=== PATIENT | female | born 1995 | race Caucasian/White ===

== ENCOUNTER → 2020-08-22 | Outpatient (CLI) | payer BC, MEDICAID ==
[2020-08-22 16:09] LABS: BASOPHILS % (AUTO) 0 % (0-10); EOSINOPHILS # (AUTO) 0.1 10^3/uL (0.0-0.3); EOSINOPHILS % (AUTO) 1 % (0-10); HEMATOCRIT 39 % (35-52); HEMOGLOBIN 12.9 g/dL (11.5-16.0); LYMPHOCYTES # (AUTO) 1.7 10^3/uL (1.0-4.0); LYMPHOCYTES % (AUTO) 12 % (12-44); MEAN CORPUSCULAR HEMOGLOBIN 30 pg (25-34); MEAN CORPUSCULAR HGB CONC 33 g/dL (32-36); MEAN CORPUSCULAR VOLUME 89 fL (80-99); MEAN PLATELET VOLUME 12.2 fL (9.0-12.2); MONOCYTES # (AUTO) 1.1 10^3/uL (0.0-1.0); MONOCYTES % (AUTO) 8 % (0-12); NEUTROPHILS # (AUTO) 11.2 10^3/uL (1.8-7.8); NEUTROPHILS % (AUTO) 79 % (42-75); PLATELET COUNT 219 10^3/uL (130-400); WHITE BLOOD COUNT 14.3 10^3/uL (4.3-11.0)
[2020-08-22 16:23] LABS: ALANINE AMINOTRANSFERASE 21 U/L (0-55); ALBUMIN 3.5 GM/DL (3.2-4.5); ALKALINE PHOSPHATASE 251 U/L (40-136); BILIRUBIN,TOTAL 0.2 MG/DL (0.1-1.0); BUN/CREATININE RATIO 15; CARBON DIOXIDE 21 MMOL/L (21-32); CHLORIDE 104 MMOL/L (98-107); CREATININE SERUM 0.81 MG/DL (0.60-1.30); GFR ESTIMATED > 60; GLUCOSE 88 MG/DL (70-105); POTASSIUM 4.2 MMOL/L (3.6-5.0); SODIUM 134 MMOL/L (135-145); URIC ACID 5.1 MG/DL (2.6-7.2)
[2020-08-22 16:45] LABS: BAND NEUTROPHILS 0 %; BASOPHILS % (MANUAL) 0 %; EOSINOPHILS % (MANUAL) 2 %; LYMPHOCYTES % (MANUAL) 11 %; MONOCYTES % (MANUAL) 6 %; NEUTROPHILS % (MANUAL) 81 %
[2020-08-22 16:46] LABS: RBC MORPH NORMAL
== END ==
LOC: LAB 15:40
PROVIDERS: ATTEND Family Medicine
DX: O16.3 Unspecified maternal hypertension, third trimester (principal); Z3A.00 Weeks of gestation of pregnancy not specified
CPT/HCPCS: 36415; 80053; 82570; 83615; 84156; 84550; 85007; 85027

== ENCOUNTER 2020-08-24 19:36 | Outpatient (CLI) | payer BC, MEDICAID ==
[2020-08-24] VITALS (7 sets, daily range): BP systolic 138–176; BP diastolic 78–93
[~2020-08-24] VITALS: Ht 170.2 cm; Wt 99.0 kg
[2020-08-24 19:56] LABS: BILIRUBIN,URINE NEGATIVE (NEGATIVE); CLARITY,URINE SL CLOUDY; COLOR,URINE YELLOW; GLUCOSE, URINE (UA) NEGATIVE (NEGATIVE); KETONES,URINE NEGATIVE (NEGATIVE); LEUKOCYTE ESTERASE ,URINE NEGATIVE (NEGATIVE); NITRITE,URINE NEGATIVE (NEGATIVE); PH,URINE 7.5 (5-9); PROTEIN,URINE TRACE (NEGATIVE)
[2020-08-24] MEDS ORDERED: BETAMETHASONE ACE/NA PHOS 6 MG/ML (CELESTONE SOLUSPAN) ONE ×2 (20:02→20:16)
[2020-08-24] MEDS ORDERED: CLINDAMYCIN 900 MG/50 ML IVPB 50 ML IV ONE (20:02)
[2020-08-24] MEDS ORDERED: LACTATED RINGERS 1,000 ML IV ONE (20:02)
[2020-08-24 20:08] LABS: AMORPHOUS SEDIMENT,UR RARE AMOR PHOSPHATE /LPF; BACTERIA,URINE TRACE /HPF; WBC,URINE 0-2 /HPF
[2020-08-24 20:38] LABS: BASOPHILS % (AUTO) 0 % (0-10); EOSINOPHILS # (AUTO) 0.1 10^3/uL (0.0-0.3); EOSINOPHILS % (AUTO) 1 % (0-10); HEMATOCRIT 35 % (35-52); HEMOGLOBIN 11.8 g/dL (11.5-16.0); LYMPHOCYTES # (AUTO) 1.8 10^3/uL (1.0-4.0); LYMPHOCYTES % (AUTO) 16 % (12-44); MEAN CORPUSCULAR HEMOGLOBIN 30 pg (25-34); MEAN CORPUSCULAR HGB CONC 34 g/dL (32-36); MEAN CORPUSCULAR VOLUME 88 fL (80-99); MEAN PLATELET VOLUME 12.6 fL (9.0-12.2); MONOCYTES # (AUTO) 1.4 10^3/uL (0.0-1.0); MONOCYTES % (AUTO) 12 % (0-12); NEUTROPHILS # (AUTO) 7.9 10^3/uL (1.8-7.8); NEUTROPHILS % (AUTO) 70 % (42-75); PLATELET COUNT 195 10^3/uL (130-400); WHITE BLOOD COUNT 11.2 10^3/uL (4.3-11.0)
[2020-08-24 20:46] LABS: CHLORIDE 109 MMOL/L (98-107); POTASSIUM 3.9 MMOL/L (3.6-5.0); SODIUM 138 MMOL/L (135-145)
[2020-08-24 20:47] LABS: ALBUMIN 3.1 GM/DL (3.2-4.5); CALCIUM 8.5 MG/DL (8.5-10.1)
[2020-08-24 20:49] LABS: GLUCOSE 88 MG/DL (70-105); TOTAL PROTEIN 6.1 GM/DL (6.4-8.2)
--- NOTE | 2020-08-24 20:49 | Short Stay Summary ---
History of Present Illness History of Present Illness Reason for visit/HPI 25-year-old G 1 L0 Currently at 35 weeks 2 days gestation based upon ultrasound and 34 weeks 6 days based upon last menstrual period. She had ruptured membranes with copious amount of clear fluid about 1-1/2 hours prior to presentation. Her EDC based upon LMP is September 29, 2020 and by ultrasound at 12 weeks September 26, 2020. She is currently with occasional contraction. She has had no vaginal bleeding. No current headaches. Date of Admission August 24, 2020 Date of Discharge August 24, 2020 Time Seen by Provider: 20:35 Attending Physician Yanira Garrison MD Admitting Physician Jan Ferguson - [facility] Of Consult Allergies and Home Medications Allergies Coded Allergies: Sulfa (Sulfonamide Antibiotics) (Verified Allergy, Unknown, 08/24/20) amoxicillin (Verified Allergy, Unknown, 08/24/20) clavulanic acid (Verified Allergy, Unknown, 08/24/20) Patient Home Medication List Home Medication List Reviewed: Yes Past [id number]-Brlddb-Ewwyfh Hx Patient Social History Marrital Status: Number of Children: 0 Smoking Status: Never a Smoker 2nd Hand Smoke Exposure: No Immunizations Up To Date Date of Influenza Vaccine: Mar 19, 2020 Reproductive System Expected Date of Delivery: Sep 26, 2020 Hx : 1 Hx Para: 0 Review of Systems Constitutional: see HPI Physical Exam Vital Signs Vital Signs - First Documented 08/24/20 20:26 Temp 36.7 Pulse 100 Resp 20 Pulse Ox 99 O2 Delivery Room Air Capillary Refill : Less Than 3 Seconds Height, Weight, BMI Height: '" Weight: lbs. oz. kg; 34.17 BMI Method: General Appearance: No Apparent Distress Cardiovascular: Regular Rate, Rhythm Gastrointestinal: Soft Comments Cervix dilated to 2 cm, 70% effaced, -2 station Short Stay Diagnosis Discharge Diagnosis-Short Stay Admission Diagnosis: 1. Intrauterine at 35 weeks 2 days gestation with ruptured membranes 2. Mild -induced hypertension Final Discharge Diagnosis: 1. Intrauterine at 35 weeks 2 days gestation with ruptured membranes 2. Mild -induced hypertension Conclusion Labs Laboratory Tests 08/24/20 19:44: Urine Color YELLOW, Urine Clarity SL CLOUDY, Urine pH 7.5, Urine Specific [place] 1.010L, Urine Protein TRACEH, Urine Glucose (UA) NEGATIVE, Urine Ketones NEGATIVE, Urine Nitrite NEGATIVE, Urine Bilirubin NEGATIVE, Urine Urobilinogen 0.2, Urine Leukocyte Esterase NEGATIVE, Urine RBC (Auto) 1+H, Urine RBC 5-10H, Urine WBC 0-2, Urine Squamous Epithelial Cells 5-10, Urine Crystals PRESENTH, U rine Amorphous Sediment RARE JESS PHOSPHATEH, Urine Bacteria TRACE, Urine Casts NONE, Urine Mucus NEGATIVE, Urine Culture Indicated NO 08/24/20 20:10: White Blood Count 11.2H, Red Blood Count 4.00, Hemoglobin 11.8, Hematocrit 35, Mean Corpuscular Volume 88, Mean Corpuscular Hemoglobin 30, Mean Corpuscular Hemoglobin Concent 34, Red Cell Distribution Width 12.1, Platelet Count 195, Mean Platelet Volume 12.6H, Immature Granulocyte % (Auto) 0, Neutrophils (%) (Auto) 70, Lymphocytes (%) (Auto) 16, Monocytes (%) (Auto) 12, Eosinophils (%) (Auto) 1, Basophils (%) (Auto) 0, Neutrophils # (Auto) 7.9H, Lymphocytes # (Auto) 1.8, Monocytes # (Auto) 1.4H, Eosinophils # (Auto) 0.1, Basophils # (Auto) 0.0, Immature Granulocyte # (Auto) 0.0 Conclusion/Plan At 8:40 PM I spoke with Dr White third shift lieutenant at [facility]. Patient will be transferred to their facility for managing delivery of a infant female. At the time of this dictation CBC, chemistry 14 as well as PT and INR are pending. [facility] has been notified and is in route to take patient. Patient as well as her agreed to transfer. YANIRA GARRISON MD Aug 24, 2020 20:49
[2020-08-24 20:50] LABS: BILIRUBIN,TOTAL 0.1 MG/DL (0.1-1.0); CARBON DIOXIDE 19 MMOL/L (21-32)
[2020-08-24 20:53] LABS: ALKALINE PHOSPHATASE 249 U/L (40-136); CREATININE SERUM 0.84 MG/DL (0.60-1.30); GFR ESTIMATED > 60
[2020-08-24 20:54] LABS: BUN/CREATININE RATIO 12
[2020-08-24 20:56] LABS: ALANINE AMINOTRANSFERASE 20 U/L (0-55)
[2020-08-24] MEDS ORDERED: TERBUTALINE INJ 1 MG/ML (BRETHINE) AMP ONE (21:22)
[2020-08-24] MEDS ORDERED: TERBUTALINE INJ 1 MG/ML (BRETHINE) AMP SC ONE (21:30)
[2020-08-24] MEDS ORDERED: CLINDAMYCIN 900 MG/50 ML IVPB 50 ML IV SCH (22:00)
[2020-08-25] MEDS ORDERED: BETAMETHASONE ACE/NA PHOS 6 MG/ML (CELESTONE SOLUSPAN) IM SCH (09:00)
== END 2020-08-24 21:41 | disposition short-term general hospital (02) ==
LOC: LDRP 19:36 → WSo 19:36
PROVIDERS: ATTEND Family Medicine
DX: Z34.90 Encounter for supervision of normal pregnancy, unspecified, unspecified trimester (principal); Z3A.00 Weeks of gestation of pregnancy not specified
CPT/HCPCS: 80053; 81000; 82570; 84156; 85025; 86850; 86900; 86901; 96361; 96372; 96374; G0463; 36415; 99214